=== PATIENT | male | born 1950 | race Caucasian/White ===

== ENCOUNTER 2017-01-29 06:04 | Day surgery (SDC) | payer MEDICARE, OTHER ==
[2017-01-29] MEDS ORDERED: ceFAZolin 2 GM/50 ML 2 GM/50 ML BAG IV ONE (06:31)
[2017-01-29] MEDS ORDERED: LACTATED RINGERS 1,000 ML IV ONE ×2 (06:59→08:22)
[2017-01-29] MEDS ORDERED: BUPIVACAINE 0.5% PF 30 ML VIAL INFIL ONE (08:09)
[2017-01-29] MEDS ORDERED: LIDOCAINE-MPF 2% 5 ML VIAL IM ONE (08:22)
[2017-01-29] MEDS ORDERED: fentaNYL 100 MCG/2 ML VIAL IVP ONE (08:22)
[2017-01-29] MEDS ORDERED: PROPOFOL 200 MG/20 ML VIAL IVP ONE (08:22)
[2017-01-29] MEDS ORDERED: ACETAMINOPHEN 1,000 MG/100 ML 100 ML IV ONE (08:22)
[2017-01-29] MEDS ORDERED: GLYCOPYRROLATE 1 MG/5 ML VIAL IVP ONE (08:22)
[2017-01-29] MEDS ORDERED: MIDAZOLAM 2 MG/2 ML VIAL IVP ONE (08:22)
[2017-01-29] MEDS ORDERED: DEXAMETHASONE 4 MG/ML VIAL IVP ONE (08:22)
[2017-01-29] MEDS ORDERED: NEOSTIGMINE 1 MG/1 ML 10 ML MDV IVP ONE (08:22)
[2017-01-29] MEDS ORDERED: SUCCINYLCHOLINE 200 MG/10 ML VIAL IVP ONE (08:22)
[2017-01-29] MEDS ORDERED: ONDANSETRON 4 MG/2 ML VIAL IVP ONE (08:22)
[2017-01-29] MEDS: fentaNYL 100 MCG/2 ML VIAL ONE ×2 (09:40→09:46)
--- NOTE | 2017-01-29 10:21 | OPERATIVE REPORT ---
DATE OF SURGERY: 01/29/2017 00:00:00 SURGEON: Yenni Patel MD. ANESTHESIA: Rohit Forrester MD, general. PREOPERATIVE DIAGNOSES 1. Right inguinal hernia. 2. Umbilical hernia. POSTOPERATIVE DIAGNOSES 1. Right inguinal hernia. 2. Umbilical hernia. PROCEDURES: Laparoscopic right inguinal hernia repair and umbilical hernia repair. INDICATION FOR PROCEDURE: This is a 66-year-old gentleman who presented for elective repair of his right inguinal hernia. He was also noted to have an umbilical hernia. FINDINGS: After obtaining informed consent from the patient, he was brought into the operating room and positioned on the operating table in the supine position, taking note of pressure points. The patient was intubated by Anesthesia. He was administered perioperative antibiotics. He was prepped and draped in the usual sterile fashion. Timeout was taken according to protocol. An infraumbilical 1 cm semicircular incision was created and deepened down to the anterior rectus sheath. Subcutaneous tissue was cleared off of the anterior rectus sheath. An incision made in the midline and extended to the right laterally. The underlying rectus muscle was visualized and swept laterally. The surgeon's finger was inserted into the retrorectal space to accommodate the dissecting balloon. This was then inserted and under direct visualization, the retrorectal space created with the dissecting balloon. This balloon was then removed and exchanged for the operative trocar. The retrorectus rectal space was insufflated. Landmarks were identified including the pubic symphysis, the epigastric vessels and the cord structures. The fatty tissue was cleared off of the pubic symphysis. I then worked my way laterally to medially protecting the epigastric vessels and sweeping the peritoneum down off of the lateral side wall. I worked my way towards the spermatic cord structures. The cremasteric fire fibers were gently dissected off of the peritoneum. The indirect hernia sac was identified and was dissected off of the cremasteric fibers. I continued to expose the entire spermatic cord. The direct space was then identified and the direct hernia was also located in this location. This hernia sac was reduced with blunt dissection. Upon full reduction of both hernia sacs, I then further inspected spermatic cord to ensure adequate dissection was accomplished. I was further dissecting the indirect sac off of the cremasteric fibers when a small defect was created in this hernia sac. After complete reduction of the sac, I chose a large medium weight Bard mesh and inserted this into the retrorectal space. This was positioned appropriately, crossing the midline slightly, and covering the direct, indirect, and femoral spaces. This was tacked in place with 1 tack medially and 1 tack laterally. The lateral tack was placed in such a way to ensure placement above the nerve structures by palpating the lateral abdominal wall with my contralateral hand. The mesh was held into place and the hernia sac closed where the defect had been created while the air was allowed to desufflate. Instruments were then removed. I then turned my attention to the umbilical hernia. The incision was slightly low for this type of repair but I was able to dissect in the subucateous tissue to the hernia sac. The umbilical hernia was very superficial and dissecting off of the skin created a small defect in the skin itself. The hernia sac was fully reduced. The hernia defect was noted to be approximately 1 cm. The subcutaneous tissues surrounding the fascia was circumferentially cleared anteriorly. A #2 Prolene [id number] suture was placed to close this defect. The anterior rectus sheath defect created for the inguinal hernia repair was also closed with a [id number] Vicryl 0 suture. The skin incisions were then closed with 4-0 Monocryl. The defect created in the umbilical skin was also closed with 4-0 Monocryl. Steri-Strips and sterile dressing were applied and 30 mL of local anesthetic was infiltrated. The patient was subsequently extubated and taken to the recovery room in stable condition. ESTIMATED BLOOD LOSS: 5 mL. COMPLICATIONS: None. JOB #: [id number] EXT JOB #:[id number] ALMA
[2017-01-29] MEDS ORDERED: HYDROmorphone 1 MG/ML SYRINGE ONE (10:33)
[2017-01-29] MEDS ORDERED: oxyCOD/ACETAMIN 5 MG/325 MG TABLET PO ONE (11:04)
[2017-01-29 11:55] VITALS: BP 141/85
== END 2017-01-29 06:05 | disposition home or self-care (01) ==
LOC: SDS 06:04
PROVIDERS: ATTEND Surgery
PROC: 0WQF0ZZ Repair Abdominal Wall, Open Approach (ICD-10-PCS; 2017-01-29)
PROC: 0YU54JZ Supplement Right Inguinal Region with Synthetic Substitute, Percutaneous Endoscopic Approach (ICD-10-PCS; principal; 2017-01-29 07:30)
DX: K40.90 Unilateral inguinal hernia, without obstruction or gangrene, not specified as recurrent (principal); K42.9 Umbilical hernia without obstruction or gangrene; I10 Essential (primary) hypertension; E78.00 Pure hypercholesterolemia, unspecified; Z79.82 Long term (current) use of aspirin
CPT/HCPCS: 49585; 49650; A9270; C1781; J0131; J0690; J1170; J7120

== ENCOUNTER 2017-04-11 15:09 | Outpatient (CLI) | payer MEDICARE, OTHER ==
--- NOTE | 2017-04-12 11:51 | MRI Report ---
EXAM: RIGHT SHOULDER MRI WITHOUT CONTRAST EXAM DATE: 04/11/2017 04:03 PM. CLINICAL HISTORY: Right shoulder pain for years. COMPARISON: None. TECHNIQUE: Multiplanar, multisequence T1-weighted and fluid-sensitive sequences of the shoulder witho ut contrast. Other: None. FINDINGS: Acromioclavicular Region: The acromion is type II. Severe acromioclavicular osteoarthropathy is evide nced by bony hypertrophy, a small effusion, and capsular hypertrophy. The coracoacromial and coracocl avicular ligaments are intact. No subacromial/subdeltoid bursal fluid. Glenohumeral Region: No subluxation. No effusion or loose bodies. The articular cartilage is unremark able. The glenohumeral ligaments and joint capsule are unremarkable. Bone Marrow: No fracture, marrow edema or bone lesions. Labrum: The labrum is unremarkable on this nonarthrographic study. Musculature/Rotator Cuff: The subscapularis tendon is unremarkable. The supraspinatus tendon has a pa rtial-thickness, joint-sided tear which is 1.1 cm in width, 1 mm in length, and 90% in thickness (701 /18; 501/5). The infraspinatus tendon demonstrates tendinosis. The teres minor tendon is intact. No e natalya or fatty atrophy. Biceps Tendon: The long head of the biceps tendon and biceps chastity are intact. Other: The subcutaneous tissues are unremarkable. IMPRESSION: 1. Severe acromioclavicular osteoarthropathy. 2. Partial tear of the supraspinatus tendon. 3. Moderate infraspinatus tendinosis. [facility] MUSCULOSKELETAL RADIOLOGY SECTION Referring Provider Line: [phone] SITE ID: [id number]
== END 2017-04-11 15:10 | disposition home or self-care (01) ==
LOC: DI 15:09
PROVIDERS: ATTEND Orthopaedic Surgery
DX: M75.101 Unspecified rotator cuff tear or rupture of right shoulder, not specified as traumatic (principal); M19.011 Primary osteoarthritis, right shoulder; M75.81 Other shoulder lesions, right shoulder

== ENCOUNTER 2017-05-05 09:43 | Outpatient (CLI) | payer MEDICARE, OTHER ==
[2017-05-05] MEDS ORDERED: GADOBUTROL 10 MMOL/10 ML VIAL ONE (10:08)
[2017-05-05] MEDS ORDERED: GADOBUTROL 10 MMOL/10 ML VIAL IVP ONE ×2 (10:51)
--- NOTE | 2017-05-06 04:55 | MRI Report ---
EXAM: MRI BRAIN WITHOUT AND WITH CONTRAST EXAM DATE: 05/05/2017 11:08 AM. CLINICAL HISTORY: VERTIGO. COMPARISON: None. TECHNIQUE: Multiplanar, multisequence T1-weighted and fluid-sensitive MR sequences of the brain were performed. Sequences optimized for IAC evaluation. Other: None. IV Contrast: Before and after 8 cc Ga davist. FINDINGS: Brain Volume: Normal for age. Parenchyma: No acute hemorrhage, mass, or recent infarct. There is moderately extensive multifocal T2 signal prolongation within the cerebral hemisphere white matter bilaterally. There is patchy involve ment of the rajeev as well, eccentric to the left. No abnormal enhancement. Ventricles/Cisterns: No hydrocephalus. No abnormal extra-axial fluid collection or hemorrhage. Orbits: Symmetric and unremarkable. Bilateral lens extraction surgery. Sella Turcica: The pituitary gland, cavernous sinuses, suprasellar cistern and optic chiasm are unrem arkable. IAC: Symmetric and unremarkable. No evidence of mass or abnormal enhancement inner ears are unremarka ble. Vasculature: Normal signal flow void is seen in the major arterial structures at the skull base. The dural sinuses are patent and enhance normally. Sinuses: No acute sinus disease. Bones: No focal pathologic appearing marrow signal changes. Other: None. IMPRESSION: 1. There is moderately extensive multifocal T2 signal prolongation within the cerebral hemisphere whi te matter bilaterally. There is patchy involvement of the rajeev as well, eccentric to the left. Findin gs likely represent small vessel ischemia. 2. No acute intracranial process. No evidence of recent ischemic event. 3. No evidence of vestibular schwannoma or other CP angle lesion. [facility] Referring Provider Line: [phone] SITE ID: [id number]
== END 2017-05-05 09:44 | disposition home or self-care (01) ==
LOC: DI 09:43
PROVIDERS: ATTEND Family Medicine
DX: R42 Dizziness and giddiness (principal)
CPT/HCPCS: 70553; A9585

== ENCOUNTER 2017-08-16 06:34 | Outpatient (CLI) | payer MEDICARE, OTHER ==
[2017-08-16] MEDS ORDERED: IOPAMIDOL-300 100 ML VIAL ONE (06:59)
[2017-08-16] MEDS ORDERED: IOPAMIDOL-300 50 ML VIAL ONE (06:59)
[2017-08-16] MEDS ORDERED: IOPAMIDOL-300 50 ML VIAL PO ONE (14:17)
[2017-08-16] MEDS ORDERED: IOPAMIDOL-300 100 ML VIAL IVP ONE (14:17)
--- NOTE | 2017-08-16 14:29 | CT Report ---
CT ABDOMEN AND PELVIS WITHOUT CONTRAST: 08/16/2017 CLINICAL INDICATION: Lower abdominal pain. History of hernia repair. TECHNIQUE: Axial CT images of the abdomen and pelvis were obtained with oral contrast. IV enhancement was attempted, but IV contrast extravasated, with no useful enhancement of the abdominal organs. Dr. Bates was notified, and warm compresses applied to the patient's arm at the time of extravasation. FINDINGS: Limited evaluation of the lung bases demonstrates minimal atelectasis. ABDOMEN: Allowing for the lack of intravenous contrast enhancement, the liver, spleen, pancreas, kidneys and adrenal glands appear unremarkable. The gallbladder is not dilated. No bowel dilatation, free gas, or free fluid is present. No abdominal adenopathy is seen. PELVIS: There is inflammation around the mid sigmoid colon, with multiple diverticula present, compatible with uncomplicated diverticulitis. No abscess or perforation is identified. No pelvic free fluid or adenopathy is seen. Osseous structures demonstrate degenerative changes. IMPRESSION: UNCOMPLICATED SIGMOID DIVERTICULITIS. CT DOSE REDUCTION STATEMENT In accordance with CT protocol optimization, one or more of the following dose reduction techniques were utilized for this exam: automated exposure control, adjustment of mA and/or KV based on patient size, or use of iterative reconstructive technique. TD: 08/16/2017 14:28
== END 2017-08-16 06:35 | disposition home or self-care (01) ==
LOC: DI 06:34
PROVIDERS: ATTEND Family Medicine
DX: R10.9 Unspecified abdominal pain (principal); K57.32 Diverticulitis of large intestine without perforation or abscess without bleeding; E11.9 Type 2 diabetes mellitus without complications; I11.0 Hypertensive heart disease with heart failure; I50.9 Heart failure, unspecified; N19 Unspecified kidney failure; Z85.79 Personal history of other malignant neoplasms of lymphoid, hematopoietic and related tissues
CPT/HCPCS: 74176; Q9967

== ENCOUNTER 2017-12-03 15:21 | Outpatient (CLI) | payer MEDICARE, OTHER ==
[2017-12-03 19:44] LABS: CHOL/HDL RATIO 3.2 (<5.0); CHOLESTEROL 146 mg/dL; HDL CHOLESTEROL 46 mg/dL; LDL CHOLESTEROL,CALCULATED 76 mg/dL; LDL/HDL RATIO 1.7 (<3.6); VLDL CHOLESTEROL 24 mg/dL
== END 2017-12-03 15:22 | disposition home or self-care (01) ==
LOC: LAB.WCP 15:21
PROVIDERS: ATTEND Family Medicine
DX: E78.5 Hyperlipidemia, unspecified (principal); Z12.5 Encounter for screening for malignant neoplasm of prostate
CPT/HCPCS: 36415; 80061; G0103; 83721; 84153

== ENCOUNTER 2018-04-01 10:09 | Outpatient (CLI) | payer MEDICARE, OTHER | END 2018-04-01 10:10 | disposition home or self-care (01) | LOC: DI 10:09 | PROVIDERS: ATTEND Internal Medicine | DX: Z53.9 Procedure and treatment not carried out, unspecified reason (principal) ==

== ENCOUNTER 2018-04-16 10:18 | Outpatient (CLI) | payer MEDICARE, OTHER ==
--- NOTE | 2018-04-16 15:45 | Nuclear Medicine Report ---
Reason: PALPITATIONS, DIAPHORESIS Procedure Date: 04/16/2018 Accession Number: [id number] / [id number] Procedure: NM - Myocardial Perfusion STR/RST CPT Code: FULL RESULT: EXAM: SINGLE-ISOTOPE EXERCISE STRESS TEST. SINGLE-ISOTOPE AND ONE-DAY REST/STRESS MYOCARDIAL PERFUSION SCANS WITH TOMOGRAPHIC IMAGING, QUANTITATIVE ANALYSIS, WALL MOTION ANALYSIS AND CALCULATION OF EJECTION FRACTION. EXAM DATE: 04/16/2018 02:51 PM. CLINICAL HISTORY: PALPITATIONS, DIAPHORESIS. COMPARISON: None available. TECHNIQUE: A rest myocardial perfusion scan was done with tomography after the intravenous administration of 9.7 mCi Tc-99m sestamibi. After an appropriate delay, a treadmill exercise stress was performed according to department protocol. The patient exercised for 9 minutes and 31 seconds. The maximum heart rate was 136 bpm, which was 90% of the maximum predicted heart rate of 151 bpm. At approximately peak heart rate, 42.4 mCi of Tc-99m sestamibi was injected for stress myocardial perfusion scan. Motion correction was applied when appropriate. Gated tomographic images were obtained for wall motion analysis and computation of left ventricular ejection fraction. FINDINGS: On visual analysis, no significant fixed or reversible perfusion defects are evident. Computer analysis: Summed stress score 1 Summed rest score 0 Sum difference score 1 Wall motion analysis demonstrates septal hypokinesis. The left ventricular end-diastolic volume is 59 cc. The left ventricular end-systolic volume is 23 cc. The left ventricular ejection fraction is calculated to be 62%. IMPRESSION: 1. On visual analysis, no significant fixed or reversible perfusion defects. 2. Normal left ventricular ejection fraction of 62%. 3. Septal hypokinesis. 4. Normal left ventricular cavity size, no change with stress. 5. Based on computer analysis, normal study with no ischemia. [facility]
--- NOTE | 2018-04-16 17:51 | CARDIAC PROCEDURE NOTE ---
DATE OF SERVICE: 04/16/2018 Physician: Angie Mccracken MD PROTOCOL: Jeffry. TIME: 9 minutes, 31 seconds. REBECA at less than negative 20. METS: 10.98. Blood pressure response: 124/72; maximum 154/52. Heart rate response: Baseline 52, to maximum 136. REASON FOR STOPPING TEST: Patient had reached his target heart rate and exercised a minute after inj ection. The patient said he could have kept going. ST SEGMENT RESPONSE: Upsloping ST depressions of 1 mm in leads V4 and V5 at maximum exercise. ARRHYTHMIAS: Rare PAC during this test. At maximum exercise, he had PVCs with bigeminy symptoms. N o chest pain. EXAM CHANGES: None. IMPRESSION 1. No symptoms. 2. No significant EKG changes. CONCLUSION: Await Cardiolite portion of test. TD: 04/16/2018 13:31
== END 2018-04-16 10:19 | disposition home or self-care (01) ==
LOC: DI 10:18
PROVIDERS: ATTEND Internal Medicine
DX: I49.3 Ventricular premature depolarization (principal); R00.8 Other abnormalities of heart beat; L74.513 Primary focal hyperhidrosis, soles
CPT/HCPCS: 78452; 93017; A9500

== ENCOUNTER 2019-01-31 07:55 | Outpatient (CLI) | payer MEDICARE, OTHER ==
--- NOTE | 2019-01-31 10:58 | MRI Report ---
Reason: PAIN, RADIATING NUMBNESS TO RIGHT ARM Procedure Date: 01/31/2019 Accession Number: [id number] / [id number] Procedure: MRI - Cervical Spine W/O CPT Code: FULL RESULT: EXAM: MRI CERVICAL SPINE WITHOUT CONTRAST EXAM DATE: 01/31/2019 09:20 AM. CLINICAL HISTORY: Pain, radiating numbness to right arm. COMPARISONS: None. TECHNIQUE: Multiplanar, multisequence T1-weighted and fluid-sensitive sequences of the cervical spine without contrast. Other: None. FINDINGS: Neurologic Structures: The visualized posterior fossa structures are unremarkable. There is mild cord effacement at C3-C4 and C4-C5. There is no cord edema or atrophy. Alignment: No scoliosis or spondylolisthesis. Bone Marrow: There is Modic type I change at the C4-C5 level. Interspace Levels/Facets: C1-C2: Unremarkable. C2-C3: Mild bilateral facet joint osteoarthritis. The canal and foramina are patent. C3-C4: There is a broad-based posterior disk osteophyte complex causing mild canal narrowing. There is mild right and moderate left foraminal narrowing. C4-C5: There is a broad-based posterior disk osteophyte complex causing mild canal narrowing and mild effacement of the ventral surface of the second cord. There is mild right and moderate left foraminal narrowing. C5-C6: There is a broad-based posterior disk osteophyte complex causing mild canal narrowing. There is a right paracentral osteophyte posteriorly displacing the right C6 nerve root proximal to the neural foramen. There is mild left and moderate right foraminal narrowing. C6-C7: There is a broad-based posterior disk osteophyte complex causing mild canal narrowing. There is moderate bilateral foraminal narrowing. Uncovertebral osteophytes contact both C7 nerve roots. C7-T1: There is moderate bilateral facet joint osteoarthritis. There is minimal canal and foraminal narrowing. Musculature: Normal. No edema or fatty atrophy. Other: The paravertebral and prevertebral soft tissues are normal. IMPRESSION: 1. Moderate, multilevel disk and facet joint degeneration. 2. There is mild to moderate bilateral foraminal narrowing from C3-C4 to C6-C7. [facility]
== END 2019-01-31 07:56 | disposition home or self-care (01) ==
LOC: DI 07:55
PROVIDERS: ATTEND Orthopaedic Surgery
DX: M47.812 Spondylosis without myelopathy or radiculopathy, cervical region (principal); M48.02 Spinal stenosis, cervical region
CPT/HCPCS: 72141

== ENCOUNTER 2019-03-09 07:06 | Outpatient (CLI) | payer MEDICARE, OTHER ==
--- NOTE | 2019-03-09 14:14 | Ultrasound Report ---
Reason: ABD PAIN AND SWELLING Procedure Date: 03/09/2019 Accession Number: [id number] / [id number] Procedure: US - Abdomen Complete CPT Code: Final Report FULL RESULT: EXAM: ABDOMEN ULTRASOUND EXAM DATE: 03/09/2019 08:27 AM. CLINICAL HISTORY: ABD PAIN AND SWELLING. COMPARISON: ABDOMEN/PELVIS W/ 08/16/2017 8:01 AM. TECHNIQUE: Real-time scanning was performed with static images obtained. FINDINGS: Liver: Normal in size and echotexture. 12.7 cm. Main portal vein flow: Hepatopetal. Gallbladder: Normal. No stones, wall thickening, or sonographic Marcum's sign. Biliary System: Common bile duct measures 3 mm. No intrahepatic or extrahepatic ductal dilatation. Pancreas: Visualized portion is unremarkable. Kidneys: Right: 9.8 cm longitudinally. Normal. No contour-deforming mass, stones, or hydronephrosis. Left: 10.9 cm longitudinally. Normal. No contour-deforming mass, stones, or hydronephrosis. Spleen: 10.8 x 3.2 x 10.7 cm. Normal in size and echotexture. Aorta and Inferior Vena Cava: Mild plaque in the distal aorta. Grossly unremarkable IVC. Other: None. IMPRESSION: No significant abnormality. [facility]
== END 2019-03-09 07:07 | disposition home or self-care (01) ==
LOC: DI 07:06
PROVIDERS: ATTEND Physician Assistant Medical
DX: R10.9 Unspecified abdominal pain (principal); R14.0 Abdominal distension (gaseous)
CPT/HCPCS: 76700

== ENCOUNTER 2021-03-30 06:07 | Day surgery (SDC) | payer MEDICARE, OTHER ==
[2021-03-30] MEDS ORDERED: CEFAZOLIN SODIUM IN 0.9 % NACL 2 GM/100 ML BAG IV ONE (06:18)
[2021-03-30] MEDS ORDERED: LACTATED RINGERS 1,000 ML IV ONE ×3 (06:33→09:09)
--- NOTE | 2021-03-30 07:14 | ANESTHESIA ---
Pre-Anesthesia VS, & Labs - Diagnosis R inguinal hernia - Procedure R inguinal hernia repair Vital Signs: Temp Pulse Resp BP Pulse Ox 36.6 C 52 L 18 128/77 96 03/30/21 06:23 03/30/21 06:23 03/30/21 06:23 03/30/21 06:23 03/30/21 06:23 Height: 5 ft 11 in Weight (kg): 89.9 kg Body Mass Index: 27.6 BMI Classification: Overweight - NPO >8 hours Home Medications and Allergies Home Medications: Ambulatory Orders Apixaban [Eliquis] 5 mg PO BID 03/25/21 Metoprolol Tartrate [Lopressor] 25 mg PO BID 03/25/21 Propafenone [Rythmol] 150 mg PO BID 03/25/21 Atorvastatin Calcium [Lipitor] 80 mg PO QPM 07/17/13 Losartan Potassium 100 mg PO QPM 01/25/17 Multivitamin [Multiple Vitamins] 1 each PO DAILY 01/25/17 Apixaban [Eliquis] 5 mg PO BID 03/25/21 Metoprolol Tartrate [Lopressor] 25 mg PO BID 03/25/21 Propafenone [Rythmol] 150 mg PO BID 03/25/21 Allergies/Adverse Reactions: Allergies Allergy/AdvReac Type Severity Reaction Status Date / Time No Known Drug Allergies Allergy Verified 07/17/13 14:48 Anes History & Medical History - Anesthetic History Anesthesia Complications: reports: No previous complications Family history of Anesthesia Complications: Denies Family history of Malignant Hyperthermia: Denies - Medical History Cardiovascular: reports: Hypertension, High cholesterol, Atrial fibrillation Pulmonary: reports: Asthma Gastrointestinal: reports: None Urinary: reports: None Musculoskeletal: reports: Osteoarthritis Endocrine/Autoimmune: reports: None Skin: reports: None - Surgical History General: reports: Colonoscopy, Other Eyes Ears Nose Throat (EENT): reports: Cataracts, Tonsil/Adenoidectomy Orthopedic: reports: Knee replacement, Arthroscopic surgery, Other Exam General: Alert, Oriented x3 Dental: WNL (but poor) Mouth Openin Fingerbreadth Neck Mobility: Normal Mallampati classification: II Respiratory: Lungs clear Cardiovascular: Other (A FIB) Abdomen: Normal bowel sounds Extremities: No clubbing Neurological: Normal gait Mental/Cognitive Status: Alert/Oriented X3 Cognitive Status: Within normal limits Plan Anesthesia Type: General, Total IV Consent for Procedure(s) Verified and Reviewed: Yes Code Status: Attempt Resuscitation ASA classification: 3-Severe systemic disease Is this case an emergency?: No
[2021-03-30] MEDS ORDERED: ONDANSETRON 4 MG/2 ML VIAL IVP PRN (07:16)
[2021-03-30] MEDS ORDERED: fentaNYL 100 MCG/2 ML VIAL IVP PRN (07:16)
[2021-03-30] MEDS ORDERED: ATROPINE ABBOJECT 1 MG/10 ML SYRINGE IVP PRN (07:16)
[2021-03-30] MEDS ORDERED: METOCLOPRAMIDE 10 MG/2 ML VIAL IVP PRN (07:16)
[2021-03-30] MEDS ORDERED: NALOXONE 0.4 MG/ML VIAL IVP PRN (07:16)
[2021-03-30] MEDS ORDERED: HYDROmorphone 0.5 MG/0.5 ML SYRINGE IVP PRN (07:16)
[2021-03-30] MEDS ORDERED: ePHEDrine 50 MG/ML VIAL IVP PRN (07:16)
[2021-03-30] MEDS ORDERED: MORPHINE 2 MG/ML CARPUJECT IVP PRN (07:16)
[2021-03-30] MEDS ORDERED: BUPIVACAINE 0.25% PF 30 ML VIAL ONE (07:25)
[2021-03-30] MEDS ORDERED: LIDOCAINE MPF 2%-EPI 1:200000 20 ML VIAL ONE (07:25)
[2021-03-30] MEDS ORDERED: LIDOCAINE 1% 50 ML MDV ONE (07:26)
[2021-03-30] MEDS ORDERED: PROPOFOL 500 MG/50 ML 500 MG/50 ML VIAL ONE ×2 (07:27→08:23)
[2021-03-30] MEDS ORDERED: LACTATED RINGERS 1,000 ML IV SCH (08:00)
[2021-03-30] MEDS ORDERED: LIDOCAINE 1% 50 ML MDV SUBQ ONE (08:01)
[2021-03-30] MEDS ORDERED: BUPIVACAINE 0.25% PF 30 ML VIAL SUBQ ONE (08:02)
[2021-03-30] MEDS ORDERED: PROPOFOL 200 MG/20 ML VIAL IVP ONE (08:02)
[2021-03-30] MEDS ORDERED: HYDROcod/ACETAM 5/325 MG TABLET PO PRN (09:05)
--- NOTE | 2021-03-30 09:19 | OPERATIVE REPORT ---
Operative Report - General Procedure Date: 03/30/21 Planned Procedure: open repair recurrent right inguinal hernia Pre-Op Diagnosis: recurrent right inguinal hernia Procedure Performed: open repair recurrent right inguinal hernia - Procedure Note Primary Surgeon: althea horton Anesthesia Technique: Local, MAC Pathology: none medial branch ilioinguinal nerve removed Estimated Blood Loss (mL): 0 Indications: large recurrent direct and small indirect Complications: none - Other Other Information/Narrative: Patient was properly identified brought to the operating room and placed in supine position. Sequential compression devices were placed. Monitored anesthesia was and sedation was given. He was prepped and draped in a sterile fashion and given preoperative antibiotics. Local anesthetic was given throughout the procedure. A 5 cm incision was made in the direction of Celina's lines just cephalad of the pubic tubercle. Dissection proceeded with cutting current cautery. The superficial epigastric vein was identified clamped divided and tied with 3-0 Vicryl. Dissection proceeded down to the aponeurosis. The aponeurosis was opened in the direction of its fibers and extended to the external ring. Cord structures were mobilized and brought up. The nerves were carefully protected and preserved. Cord structures were mobilized and brought up. A large direct hernia was identified. The direct bulge was mobilized away from surrounding structures. It was reduced and floor repaired with a 2-0 silk pursestring suture. There was a small indirect inguinal hernia. Sac was tied and removed. The medial branch of the ilioinguinal nerve was removed to allow for repair. Polypropylene mesh was cut to size and with tails. The mesh was secured with multiple interrupted 0 Ethibond sutures. She was placed along the pubic tubercle, Sean's ligament area and along the shelving border of Poupart's ligament. Sutures were placed medially along the abdominal wall musculature and internal oblique. The medial tail of the mesh was secured to the shelving border of Poupart's ligament with 3 interrupted 0 ethibond sutures recreating the internal ring of appropriate size. An additional suture was placed in the crotch of the mesh recreating an internal ring of appropriate size. Aponeurosis was closed with a running 2-0 Vicryl suture. The opposite was closed with interrupted 3-0 Vicryl suture. Buried interrupted subdermal 3-0 Vicryl sutures were then placed. And was closed with a running 4-0 Monocryl subcuticular suture. Dressing was applied. Patient was awakened and brought to recovery in good condition.
[2021-03-30] MEDS ORDERED: HYDROcod/ACETAM 5/325 MG TABLET ONE (10:02)
[2021-03-30 10:18] VITALS: BP 121/71
--- NOTE | 2021-03-30 12:27 | ANESTHESIA POST OP EVALUATION ---
Anesthesia Post Eval - Post Anesthesia Eval Vitals: Last Vital Signs Temp 36.6 C 03/30/21 10:10 Pulse 53 L 03/30/21 10:10 Resp 16 03/30/21 10:10 BP 121/71 03/30/21 10:10 Pulse Ox 99 03/30/21 10:10 CV Function Including HR & BP: Stable Pain Control: Satisfactory Nausea & Vomiting: Negative Mental Status: Baseline Respiratory Status: Airway Patent Hydration Status: Satisfactory Anesthesia Complications: None
== END 2021-03-30 06:08 | disposition home or self-care (01) ==
LOC: SDS 06:07
PROVIDERS: ATTEND Surgery
DX: K40.91 Unilateral inguinal hernia, without obstruction or gangrene, recurrent (principal); I48.91 Unspecified atrial fibrillation
CPT/HCPCS: 49520; A9270; C1781; J0690; J7120

== ENCOUNTER 2022-05-05 07:59 | Outpatient (CLI) | payer MEDICARE, OTHER ==
--- NOTE | 2022-05-05 09:38 | MRI Report ---
PROCEDURE: LUMBAR SPINE WO INDICATIONS: SCIATICA TECHNIQUE: Noncontrast sagittal T1 spin echo and T2 fast echo, sagittal STIR, axial T1 and T2 fast spin echo thr ough the lumbar spine. In cases with scoliosis, additional coronal T2 fast spin echo may be performe d. COMPARISON: Correlation is made with prior abdomen pelvis CT, 08/16/2017 FINDINGS: Image quality: Excellent. Alignment and Curvature: There is normal bony alignment. Bone Marrow: Marrow is of normal overall signal. No acute vertebral body compression fractures. Spinal Cord: Conus medullaris terminates at the L1 level. Visualized cord demonstrates normal signa l and size. Paraspinous Soft Tissues: No paravertebral masses. This patient has transitional anatomy. For the purposes of this examination, the level with last well -developed pair of ribs is considered to be T12. By this imaging scheme, there is a transitional, magnus imentary S1-S2 disc present. T12-L1: No significant abnormality is seen. L1-L2: Level within normal limits. L2-L3: Mild loss of disc height and disc signal are seen. Mild to moderate disc bulge is seen. The re is a remote Schmorl's node along the inferior aspect of the L2 vertebral body. Mild facet hypertr ophy is seen. Moderate bilateral neural foraminal narrowing is seen. Mild to moderate central sonny l narrowing is seen. L3-L4: The disc height is well-preserved. There is loss of disc signal seen. Mild to moderate disc bulge is seen, which is eccentric to the right. Mild to moderate facet hypertrophy is seen. There is moderate right-sided and mild to moderate left-sided neuroforaminal narrowing. Mild to moderate centr al canal narrowing is seen. L4-L5: The disc height is well-preserved. There is loss of disc signal seen. Moderate disc bulge i s seen at this level. A superimposed central disc protrusion is seen. Moderate facet hypertrophy is seen. At least moderate bilateral neuroforaminal narrowing can be seen. There is a minimal degree o f compression upon the exiting L4 nerve roots. Mild to moderate central canal narrowing is seen. L5-S1: The disc height is well-preserved. There is loss of disc signal seen. Mild to moderate disc bulge is seen. A superimposed central disc protrusion is seen. Note is made of an annular fissure po steriorly. Moderate facet hypertrophy is seen. Moderate to severe bilateral neural foraminal narro wing can be seen, with associated compression upon the exiting nerve roots. Mild central canal narr owing is seen. S1-S2: A transitional, rudimentary disc is seen at this level. No definite central canal or neurofora solo narrowing can be seen. IMPRESSION: Multiple levels of lumbar spine degenerative change are seen, which are worst inferiorly . Reviewed by: Mark Naylor MD on 05/05/2022 8:37 AM [facility] Approved by: Mark Naylor MD on 05/05/2022 8:37 AM [facility] Station ID: [id number]
== END 2022-05-05 08:00 | disposition home or self-care (01) ==
LOC: DI 07:59
PROVIDERS: ATTEND Internal Medicine
DX: M47.816 Spondylosis without myelopathy or radiculopathy, lumbar region (principal); M47.817 Spondylosis without myelopathy or radiculopathy, lumbosacral region; M51.27 Other intervertebral disc displacement, lumbosacral region; M51.36 Other intervertebral disc degeneration, lumbar region; M48.061 Spinal stenosis, lumbar region without neurogenic claudication; M51.37 Other intervertebral disc degeneration, lumbosacral region; M48.07 Spinal stenosis, lumbosacral region